=== PATIENT | male | born 1995 | race Caucasian/White ===

== ENCOUNTER 2016-03-12 18:05 | Emergency (ER) | payer BC ==
--- NOTE | 2016-03-12 19:45 | EDPHY ---
H & P Time Seen by Provider: 03/12/16 19:44 HPI/ROS: CHIEF COMPLAINT: Left upper abdominal pain HISTORY OF PRESENT ILLNESS: Patient was drinking and fell down the stairs 2 nights ago. He presents with left upper quadrant abdominal pain which is mild to moderate not associated with vomiting or diarrhea or fever or chills. No hematuria. Symptoms not better worse with anything. REVIEW OF SYSTEMS: Eye: no change in vision ENT: no sore throat Cardiac: no chest pain or syncope Pulmonary: no cough or SOB Abdomen: HPI Musculoskeletal: no back pain Skin: Bruising especially on the right flank and right hip. Neuro: no headache Constitutional: no fever : no urinary symptoms A comprehensive 10 point review of systems is otherwise negative aside from elements mentioned in the history of present illness. PAST MEDICAL HISTORY: Admission history and physical dated 05/14/2015 reviewed personally by myself. Negative for surgical history. Social history: Smoker, occasional alcohol. General Appearance: Alert and conversant, cooperative. Eyes: No scleral icterus. ENT, Mouth: Normal mucous membranes. Respiratory: Normal respiratory effort, breath sounds equal, lungs are clear to auscultation. Cardiovascular: Regular rate and rhythm. Gastrointestinal: Left upper quadrant tenderness without rebound or guarding. Nontender over the liver. Neurological: Alert and oriented x3. Normally conversant. Face symmetric, normal movement and sensation in all extremities. Skin: Bruising over the right flank and right hip. Musculoskeletal: No cervical thoracic or lumbar spine midline tenderness. Pelvis stable. Psychiatric: Not agitated. Emergency Department course/MDM: Tenderness over the spleen after trauma 2 days ago. Plan for i-STAT and abdominal pelvis CT scan. Results discussed with the patient. Likely abdominal wall contusion. No evidence at this time on CT scanning of internal bleeding or other internal injury. Smoking Status: Current some day smoker Constitutional: Initial Vital Signs Temperature (C) 36.7 C 03/12/16 18:20 Heart Rate 68 03/12/16 18:20 Respiratory Rate 16 03/12/16 18:20 Blood Pressure 130/64 H 03/12/16 18:20 O2 Sat (%) 96 03/12/16 18:20 O2 Delivery Mode Room Air Allergies/Adverse Reactions: No Known Allergies Allergy (Unverified 05/11/15 17:57) Home Medications: Medication Instructions Recorded Omeprazole 03/12/16 Medical Decision Making - Diagnostics Imaging: Negative abdominal pelvis CT for trauma per Dr. Christianson at 9:15 p.m.. - Data Points Laboratory Results: 03/12/16 20:11 POC Hgb 16.7 gm/dL (14.5-17.3) POC Hct 49 % (42.8-50.6) POC Sodium 142 mEq/L (134-144) POC Potassium 3.7 mEq/L (3.3-5.0) POC Chloride 103 mEq/L (96-108) POC BUN 12 mg/dL (7-23) POC Creatinine 1.0 mg/dL (0.8-1.5) POC Glucose 90 mg/dL (70-100) Point of Care Test Results: 03/12/16 20:11 POC Sodium 142 POC Potassium 3.7 POC Chloride 103 POC BUN 12 POC Creatinine 1.0 POC Glucose 90 Departure - Departure Disposition: Home, Routine, Self-Care Clinical Impression: Abdominal wall contusion Condition: Good Instructions: Contusion in Adults (ED), Blunt Abdominal Injury (ED) Additional Instructions: Your CT scan was negative for any intra-abdominal injury. Referrals: Case Dickson MD [Medical Doctor] - As per Instructions
[2016-03-12] MEDS ORDERED: IOPAMIDOL (ISOVUE-300) 100 ML BTL IV ONE (20:26)
--- NOTE | 2016-03-12 21:28 | CT ---
CT Scan of the Abdomen and Pelvis (With Contrast) March 12, 2016 at 2037 hours Indication: Recent trauma. Left upper quadrant pain. Fall down stairs. Technique: 90 mL of Isovue-300 were given intravenously by machine power injection. Multidetector h elical CT imaging was performed from the diaphragm to the symphysis pubis. Dose reduction techniques were utilized. Findings Abdomen: The lung bases are clear. The liver is unremarkable, without evidence for a mass or lacera tion. The spleen is normal in size, without evidence for a hematoma or laceration. Both kidneys enh ance normally, without evidence for a mass, hydronephrosis, laceration, or hematoma. Both adrenal gl ands are normal in size and appearance. No significant abdominal lymphadenopathy. Pelvis: No evidence for free fluid in the pelvis. No evidence for a retroperitoneal hematoma. No e vidence for a bladder calculus. No evidence for diverticulitis or small bowel obstruction. Impression: Normal CT of the abdomen and pelvis, with IV contrast. Results called to Dr. Michael Arais on March 12, 2016 at 2115 hours.
[2016-03-12 21:37] VITALS: BP 133/88; PULSE 70; RESP 14; TEMP 97.9; O2SAT 96
== END 2016-03-12 21:36 | disposition home or self-care (01) ==
DX: S30.1XXA Contusion of abdominal wall, initial encounter (principal); F17.200 Nicotine dependence, unspecified, uncomplicated; W10.8XXA Fall (on) (from) other stairs and steps, initial encounter
CPT/HCPCS: 82947-QW; Q9967

== ENCOUNTER 2016-04-01 15:59 | Emergency (ER) | payer BC ==
--- NOTE | 2016-04-01 16:01 | EDPHY ---
H & P - Medical/Surgical History Hx Asthma: No Hx Chronic Respiratory Disease: No Hx Diabetes: No Hx Cardiac Disease: No Hx Renal Disease: No Hx Cirrhosis: No Hx Alcoholism: No Hx HIV/AIDS: No Hx Splenectomy or Spleen Trauma: No Other PMH: wisdom tooth extraction, Shingles 2010. GASTRITIS - Social History Smoking Status: Current some day smoker Constitutional: Initial Vital Signs Temperature (C) 36.1 C 04/01/16 15:59 Heart Rate 105 H 04/01/16 15:59 Respiratory Rate 18 04/01/16 15:59 Blood Pressure 124/61 H 04/01/16 15:59 O2 Sat (%) 95 04/01/16 15:59 O2 Delivery Mode Room Air Allergies/Adverse Reactions: No Known Allergies Allergy (Unverified 05/11/15 17:57) Home Medications: Medication Instructions Recorded Omeprazole 03/12/16 Medical Decision Making ED Course/Re-evaluation: CHIEF COMPLAINT: Seizure HISTORY OF PRESENT ILLNESS: The patient is a 20 y/o male arriving via EMS with his roommate after a witnessed seizure this afternoon. His roommate reports he has been drinking heavily and tried to stop 3 days ago. While walking outside today, the patient began talking of "seeing lights" to his roommate. He subsequently fell to the ground with his back against the curb and had a 1-2 minute period of tonic-clonic activity. For EMS, he has been confused and postictal. He complains of lumbar pain, worse on the right side. EMS administered 100mcg IV Fentanyl for pain, with only slight alleviation. The patient continues to be confused on initial assessment. He tells me he fell 3 weeks ago and struck his head. He was evaluated here in the ED, but at that time complained of abdominal pain only. An abdominal CT at that time was negative. He also reports recreational use of Adderall, Klonopin, and Ativan, though he has had a prescription for this at some point. REVIEW OF SYSTEMS: A 10 point review of systems was performed and is negative with the exception of the elements mentioned in the history of present illness. PHYSICAL EXAM: HR, BP, O2 Sat, RR. Temp noted General Appearance: Alert, well hydrated, appropriate, and non-toxic appearing. Head: Atraumatic without scalp tenderness or obvious injury Eyes: Pupils equal, round, reactive to light and accommodation, EOMI, no trauma , no injection. Ears: Clear bilaterally, no perforation, normal landmarks Nose: Atraumatic, no rhinorrhea, clear. Throat: There is no erythema or exudates, no lesions, normal tonsils, mucus membranes moist. Neck: Supple, 2+ carotid upstroke, nontender, no lymphadenopathy. Respiratory: No retractions, no distress, no wheezes, and no accessory muscle use. Lungs are clear to auscultation bilaterally. Cardiovascular: Mildly tachycardic regular rate and rhythm, no murmurs, rubs, or gallops. Bilateral carotid, radial, dorsalis pedis, and posterior tibial pulses intact. Good capillary refill all extremities. Gastrointestinal: Abdomen is soft, nontender, non-distended, no masses, no rebound, no guarding, no peritoneal signs. Musculoskeletal: Normal active ROM of all extremities, atraumatic. Neurological: Alert, oriented x2, appropriate, and interactive. The patient has normal DTRs and non-focal cranial nerves, motor, sensory, and cerebellar exam. Skin: No rashes, good turgor, no nodules on palpation. Past medical history: Alcoholism, anxiety Past surgical history: Noncontributory Family history: Noncontributory Social history: Alcohol abuse. Recreational use of Adderall, Klonopin, and Ativan. Roommate at bedside. Reviewed prior medical records including admission 05/11/15 for vomiting and abdominal pain. DIAGNOSTICS/PROCEDURES/CRITICAL CARE TIME: The 12 lead EKG was interpreted by myself. EKG shows sinus tachycardia rate 101. See hard copy and/or "tracemaster" electronic copy for interpretation. Study: CT of the Head Indication: Hx of head trauma, seizure Results: CT scan of the head was obtained. The results of the study are negative. The study was read by the radiologist, Dr. Jackman. I viewed the images myself on the PACS system. Study: CT of the Lumbar spine Indication: Hx of head trauma, pain Results: CT scan of the spine was obtained. The results of the study are negative. The study was read by the radiologist, Dr. Jackman. I viewed the images myself on the PACS system. DIFFERENTIAL DIAGNOSIS: The differential diagnosis for the patient's seizure included but was not limited to electrolyte abnormality, alcohol withdrawal, medication noncompliance, head injury, [employer] structural abnormality, and break through seizure. MEDICAL DECISION MAKING: This is a 20 y/o male with a history of alcohol abuse who reportedly attempted to stop drinking 3 days ago who had a seizure this afternoon. His roommate, who witnessed the event, describes a prodromal aura followed by tonic-clonic activity. The patient is alert, though continues to be somewhat confused. He does give me a history of a fall 3 weeks ago where he hit his head, but was not evaluated for a head injury at that time. He received 100mcg IV Fentanyl en route for new lumbar back pain following his seizure today. He denies other injuries. While it's possible this is a post-traumatic seizure, with his history of heavy alcohol use and recent sober period, this is more likely an alcohol withdrawal seizure. Plan for labs including CBC, CHEM, lipase, LFTs, PTPTT, head and lumbar spine CTs, and EKG. 1L IV NS and 1mg IV Ativan administered. Hct 56.7. Additional 1L IV NS administered. Lipase pending. Lipase is normal. 1713: Patient's CTs are normal per Dr. Jackman. I discussed the work up with the patient. He will be discharged to the [facility] with Librium prepack. He agrees with plan. Return precautions given. - Data Points Laboratory Results: Laboratory Results 04/01/16 16:08 04/01/16 16:08 04/01/16 16:08 WBC 12.35 H 10^3/uL (3.80-9.50) RBC 6.47 H 10^6/uL (4.40-6.38) Hgb 18.6 H g/dL (13.7-17.5) Hct 56.7 H % (40.0-51.0) MCV 87.6 fL (81.5-99.8) MCH 28.7 pg (27.9-34.1) MCHC 32.8 g/dL (32.4-36.7) RDW 12.6 % (11.5-15.2) Plt Count 278 10^3/uL (150-400) MPV 10.2 fL (8.7-11.7) Neut % (Auto) 50.7 % (39.3-74.2) Lymph % (Auto) 33.9 % (15.0-45.0) Williamson % (Auto) 12.5 % (4.5-13.0) Eos % (Auto) 0.5 L % (0.6-7.6) Baso % (Auto) 0.6 % (0.3-1.7) Nucleat RBC Rel Count 0.2 % (0.0-0.2) Absolute Neuts (auto) 6.27 10^3/uL (1.70-6.50) Absolute Lymphs (auto) 4.19 H 10^3/uL (1.00-3.00) Absolute Monos (auto) 1.54 H 10^3/uL (0.30-0.80) Absolute Eos (auto) 0.06 10^3/uL (0.03-0.40) Absolute Basos (auto) 0.07 10^3/uL (0.02-0.10) Absolute Nucleated RBC 0.03 H 10^3/uL (0-0.01) Immature Gran % 1.8 H % (0.0-1.1) Immature Gran # 0.22 H 10^3/uL (0.00-0.10) PT 14.2 SEC (12.0-15.0) INR 1.11 (0.83-1.16) APTT 28.4 SEC (23.0-38.0) Sodium 149 H mEq/L (134-144) Potassium 3.9 mEq/L (3.5-5.2) Chloride 105 mEq/L (97-110) Carbon Dioxide 10 L mEq/l (22-31) Anion Gap 34 H mEq/L (8-16) BUN 18 mg/dL (7-23) Creatinine 1.3 mg/dL (0.7-1.3) Estimated GFR > 60 Glucose 179 H mg/dL (70-100) Calcium 10.6 H mg/dL (8.5-10.4) Total Bilirubin 1.7 H mg/dL (0.1-1.4) Conjugated Bilirubin 0.5 mg/dL (0.0-0.5) Unconjugated Bilirubin 1.2 H mg/dL (0.0-1.1) AST 38 IU/L (17-59) ALT 32 IU/L (21-72) Alkaline Phosphatase 98 IU/L (38-126) Total Protein 9.7 H g/dL (6.3-8.2) Albumin 5.6 H g/dL (3.5-5.0) Lipase 97.0 IU/L (23-300) Medications Given: Discontinued Medications Lorazepam (Ativan Injection) 1 mg IVP EDNOW ONE Stop: 04/01/16 16:13 Last Admin: 04/01/16 16:15 Dose: 1 mg Departure - Departure Disposition: Home, Routine, Self-Care Clinical Impression: Alcohol withdrawal seizure Condition: Good Instructions: Alcohol Withdrawal (ED), New-Onset Seizure in Adults (ED) Additional Instructions: Go directly to the [facility] for detox. Use Librium as prescribed for symptoms of withdrawal. Referrals: Patient,NotPresent [Unknown] - As per Instructions [facility] Detox 24 Hours [Outside] - As per Instructions Report Scribed for: Tomas Garland Report Scribed by: Lucille Rodarte Date of Report: 04/01/16 Time of Report: 16:24
[2016-04-01] MEDS ORDERED: NS 1,000 ML IV ONE (16:07)
[2016-04-01] MEDS ORDERED: LORazepam 2 MG/ML INJ ONE (16:08)
--- NOTE | 2016-04-01 16:11 | CPEKG ---
Heart Rate: 101 RR Interval: 594 P-R Interval: 140 QRSD Interval: 84 QT Interval: 344 QTC Interval: 446 P Section: 78 QRS Section: 42 T Wave Section: 8 EKG Severity - OTHERWISE NORMAL ECG - EKG Impression: SINUS TACHYCARDIA Electronically Signed By: Iveth Krause 01-Apr-2016 16:28:22
[2016-04-01] MEDS ORDERED: LORazepam 2 MG/ML INJ IVP ONE (16:12)
[2016-04-01 16:14] VITALS: RESP 18
[2016-04-01 16:20] LABS: % IMMATURE GRANULYOCYTES 1.8 % (0.0-1.1); ABSOLUTE IMMATURE GRANULOCYTES 0.22 10^3/uL (0.00-0.10); ABSOLUTE NRBC COUNT 0.03 10^3/uL (0-0.01); ADD DIFF? NO; ADD MORPH? NO; ADD SCAN? NO; ATYPICAL LYMPHOCYTE FLAG 50 (0-99); FRAGMENT RBC FLAG 0 (0-99); HEMATOCRIT 56.7 % (40.0-51.0); HEMOGLOBIN 18.6 g/dL (13.7-17.5); LEFT SHIFT FLG 10 (0-99); LIPEMIA HEMOLYSIS FLAG 80 (0-99); MEAN CELL HEMOGLOBIN 28.7 pg (27.9-34.1); MEAN CELL HEMOGLOBIN CONCENTR. 32.8 g/dL (32.4-36.7); MEAN CELL VOLUME 87.6 fL (81.5-99.8); MEAN PLATELET VOLUME 10.2 fL (8.7-11.7); NRBC-AUTO% 0.2 % (0.0-0.2); PLATELET CLUMPS FLAG 50 (0-99); PLATELET COUNT 278 10^3/uL (150-400); RED BLOOD CELL COUNT 6.47 10^6/uL (4.40-6.38); RED CELL DISTRIBUTION WIDTH 12.6 % (11.5-15.2)
[2016-04-01 16:31] LABS: ALANINE AMINOTRANSFERASE 32 IU/L (21-72); ALBUMIN 5.6 g/dL (3.5-5.0); ALKALINE PHOSPHATASE 98 IU/L (38-126); ANION GAP 34 mEq/L (8-16); ASPARTATE AMINOTRANSFERASE 38 IU/L (17-59); BILIRUBIN,TOTAL 1.7 mg/dL (0.1-1.4); BILIRUBIN-CONJUGATED 0.5 mg/dL (0.0-0.5); BILIRUBIN-UNCONJUGATED 1.2 mg/dL (0.0-1.1); CALCIUM 10.6 mg/dL (8.5-10.4); CARBON DIOXIDE 10 mEq/l (22-31); CHLORIDE 105 mEq/L (97-110); CREATININE 1.3 mg/dL (0.7-1.3); GLOMERULAR FILTRATION RATE > 60; GLUCOSE 179 mg/dL (70-100); POTASSIUM 3.9 mEq/L (3.5-5.2); SODIUM 149 mEq/L (134-144); TOTAL PROTEIN 9.7 g/dL (6.3-8.2)
[2016-04-01 16:38] LABS: INR 1.11 (0.83-1.16); PROTIME(PATIENT) 14.2 SEC (12.0-15.0)
[2016-04-01 16:45] LABS: APTT 28.4 SEC (23.0-38.0)
[2016-04-01] MEDS ORDERED: CHLORDIAZEPOXIDE 25MG PREPK#6 BTL TAKEHOME ONE (17:15)
--- NOTE | 2016-04-01 17:32 | CT ---
CT Brain (Without Contrast) April 01, 2016 at 1650 Hours History: Seizure, head trauma, fall. Comparison: None. Technique: Axial computed tomographic images of the brain without contrast. Dose reduction technique s were utilized. Findings: Ventricles, cisterns, and sulci are normal without atrophy, hydrocephalus, midline shift/h erniation, or epidural/subdural hematomas. No acute intraparenchymal hemorrhage, definite infarct, or mass effect. Bone windows demonstrate no displaced fractures. Paranasal sinuses and mastoid air cell s are clear. Impression: 1. Normal CT brain without contrast. 2. No epidural or subdural hematoma. 3. Consider MR imaging, if clinically indicated. Findings and recommendations discussed with emergency department physician, Tomas Garland MD at 17 12 hours on April 01, 2016. Final report concurs with initial preliminary interpretation.
--- NOTE | 2016-04-01 17:35 | CT ---
CT Scan of the Lumbar Spine Without Contrast With Multiplanar Reconstructions Clinical Indications: Fall, pain. Seizure, head trauma, fall. Comparison: None. Technique: Thinly collimated multidetector helical CT imaging of the lumbar spine was reviewed in mu ltiple planes. Multiplanar reconstructions reviewed on [employer] workstation and performed to better griselda luate alignment. Dose reduction techniques were utilized. Findings: No definite acute lumbar spine fracture. No lumbar compression fractures. No degenerative disk disease with disk space narrowing. No bony central canal or neural foraminal stenosis. Impression: 1. No definite fracture. 2. No lumbar compression fractures. 3. If there is persistent pain or neurological deficit, recommend MR lumbar spine and consider flexio n and extension views, if clinically indicated. Findings and recommendations discussed with emergency department physician, Tomas Garland MD at 1 710 hours on April 01, 2016. Final report concurs with initial preliminary interpretation.
[2016-04-01] MEDS ORDERED: IBUPROFEN 600 MG TAB PO ONE (17:51)
[2016-04-01 18:15] VITALS: BP 128/74; PULSE 89; TEMP 98.2; O2SAT 96
== END 2016-04-01 18:15 | disposition home or self-care (01) ==
LOC: EDUNIT#
DX: R56.9 Unspecified convulsions (principal); F10.239 Alcohol dependence with withdrawal, unspecified; F17.200 Nicotine dependence, unspecified, uncomplicated
CPT/HCPCS: 96374

== ENCOUNTER 2018-08-10 14:54 | Emergency (ER) | payer OTHER, BC | END 2018-08-10 16:47 | disposition home or self-care (01) ==